=== PATIENT | male | born 1990 | race Caucasian/White ===

== ENCOUNTER 2016-04-29 15:27 | Emergency (ER) | payer BC ==
--- NOTE | 2016-04-29 15:43 | PHYS DOC ---
Past Medical History Past Medical History: No Pertinent History Past Surgical History: No Surgical History Additional Information: 1 ppd Alcohol Use: Occasionally Drug Use: Heroin, Methadone Social History Narrative: Methadone 85mg PO daily Adult General Chief Complaint Chief Complaint: WRIST PAIN HPI HPI Patient is a 25 year old male who presents with left wrist pain rated at 5 out of 10 sharp in nature that began a couple minutes prior to coming to the ED after lifting a heavy pipe. He states he heard a pop sound from the left wrist. Patient's denies any discomfort in the nasal pain. He states most of the pain is on the dorsal aspect of the ulna. Review of Systems Review of Systems Constitutional: Denies fever or chills [] Musculoskeletal: Left wrist pain Integument: Denies rash or skin lesions [] Neurologic: Denies headache, focal weakness or sensory changes [] Endocrine: Denies polyuria or polydipsia [] Physical Exam Physical Exam Constitutional: Well developed, well nourished, no acute distress, non-toxic appearance. [] Skin: Warm, dry, no erythema, no rash. [] Back: No tenderness, no CVA tenderness. [] Extremities: Left wrist with no obvious deformity, no bruising or ecchymosis. No scaphoid tenderness or tenderness on the left wrist. Tenderness on palpation of the left wrist distal ulnar dorsal aspect. Full range of motion to the left wrist and fingers. Adequate ulna radial and medial sensation to the left fingers. +2 left radial pulse. Cap refill less than 2 seconds left upper extremity. Neurologic: Alert and oriented X 3, normal motor function, normal sensory function, no focal deficits noted. [] Psychologic: Affect normal, judgement normal, mood normal. [] EKG EKG [] Radiology/Procedures Radiology/Procedures []PROCEDURE: WRIST 3V LEFT Left wrist, 3 views, 04/29/2016: History: Pain after lifting pipe A faint lucency projected over the navicular bone on one view is probably due to an overlying soft tissue shadow. No abnormality is evident on the other views. No definite fracture or dislocation is delineated. IMPRESSION: No acute bony abnormality is detected. DICTATED and SIGNED BY: DONNIE HERZOG MD DATE: 04/29/16 9743 CC: NAHED JONES APRN; NO PCP ~ Course & Med Decision Making Course & Med Decision Making Pertinent Labs and Imaging studies reviewed. (See chart for details) Patient is in the ED with left wrist strain after lifting a heavy item. Xray of the left wrist interpreted by Radiologist is negative for any acute findings. Patient was provided a Velcro splint applied by the ED RN, neurovascular exam done by me is normal. Cap refill less than 2 seconds. Ice elevation encouraged. Patient takes methadone at home, instructed him he can continue taking methadone for his chronic pain as well as anti-inflammatories. Follow-up with ortho in one week. Dragon Disclaimer Dragon Disclaimer This electronic medical record was generated, in whole or in part, using a voice recognition dictation system. Departure Departure Impression: Primary Impression: Strain of left wrist Disposition: HOME, SELF-CARE Condition: STABLE Referrals: WILLIAM LEMUS MD see him in one week Patient Instructions: Wrist Sprain with [facility] Additional Instructions: You were seen for left wrist sprain. Please wear the velcro splint as needed. Ice and elevate the extremity. Continue taking your own pain medicines as needed. Follow up with the provided Orthopedic doctor in one week. Problem Qualifiers Primary Impression: Strain of left wrist Encounter type: initial encounter Qualified Code: S66.912A - Strain of unspecified muscle, fascia and tendon at wrist and hand level, left hand, initial encounter NAHED JONES APRN Apr 29, 2016 15:43
--- NOTE | 2016-04-29 16:12 | RAD ---
Left wrist, 3 views, 04/29/2016: History: Pain after lifting pipe A faint lucency projected over the navicular bone on one view is probably due to an overlying soft tissue shadow. No abnormality is evident on the other views. No definite fracture or dislocation is delineated. IMPRESSION: No acute bony abnormality is detected.
== END 2016-04-29 16:38 | disposition home or self-care (01) ==
LOC: ER 15:27
DX: S66.912A Strain of unspecified muscle, fascia and tendon at wrist and hand level, left hand, initial encounter (principal); F17.200 Nicotine dependence, unspecified, uncomplicated; F19.10 Other psychoactive substance abuse, uncomplicated; X58.XXXA Exposure to other specified factors, initial encounter; Y93.89 Activity, other specified; Y92.89 Other specified places as the place of occurrence of the external cause; Y99.8 Other external cause status
CPT/HCPCS: 29515; 73110; 99284-25